=== PATIENT | male | born 1955 | race Two or more races ===

== ENCOUNTER → 2018-04-12 | Day surgery (SDC) | payer OTHER | END | disposition home or self-care (01) | LOC: ADM 04-09 14:45 → AMB-ENDOS 07:38 → CIR.AMB 14:45 | DX: D12.3 Benign neoplasm of transverse colon (principal); D12.4 Benign neoplasm of descending colon; K57.30 Diverticulosis of large intestine without perforation or abscess without bleeding; K64.1 Second degree hemorrhoids ==